=== PATIENT | female | born 2000 | race Two or more races ===

== ENCOUNTER 2022-11-28 12:19 | Inpatient (IN) | payer OTHER, MEDICAID, SELFPAY ==
[2022-11-28 12:34] VITALS: BP 122/80; PULSE 106; RESP 18; O2SAT 98; BMI 32.1
--- NOTE | 2022-11-28 13:03 | ED.PSYCH ---
HPI - Psych General Chief Complaint: Psychiatric Symptoms <Kavitha Nguyen NP - Last Filed: 11/28/22 16:12> Stated Complaint: Psych eval requested by patient per EMS <Kavitha Nguyen NP - Last Filed: 11/28/22 16:12> Time Seen by Provider: 11/28/22 12:34 <Kavitha Nguyen NP - Last Filed: 11/28/22 16:12> Source: patient and EMS <Kavitha Nguyen NP - Last Filed: 11/28/22 16:12> Mode of arrival: EMS <Kavitha Nguyen NP - Last Filed: 11/28/22 16:12> Limitations: no limitations <Kavitha Nguyen NP - Last Filed: 11/28/22 16:12> History of Present Illness HPI Narrative: 22-year-old female who reportedly is healthy presents to the ER seeking a mental health evaluation. Patient reports she was very angry today at home and was throwing things and felt that she was quite aggressive so feels that she needs a mental health evaluation. She denies SI, HI, hallucinations, substance use. No physical complaints <Kavitha Nguyen NP - Last Filed: 11/28/22 16:12> Related Data Home Medications: Home Medications Medication Instructions Recorded Confirmed benztropine 1 mg PO DAILY 11/28/22 11/28/22 perphenazine 8 mg PO BID 11/28/22 11/28/22 risperidone 1 mg PO BID 11/28/22 11/28/22 trazodone 50 mg PO BEDTIME 11/28/22 11/28/22 <Kavitha Nguyen NP - Last Filed: 11/28/22 16:12> Allergies/Adverse Reactions: Allergies Allergy/AdvReac Type Severity Reaction Status Date / Time No Known Allergies Allergy Verified 11/28/22 13:52 <Kavitha Nguyen NP - Last Filed: 11/28/22 16:12> Review of Systems Review of Systems: Yes all other systems are reviewed and are negative <TORRIE Mendez Last Filed: 11/28/22 16:12> Constitutional: Constitutional: Reports no additional constitutional complaints, Denies body ache(s), Denies chills, Denies fever(s), Denies headache(s) and Denies weakness <Kavitha Nguyen [employer] - Last Filed: 11/28/22 16:12> Eyes: Eyes: Reports no additional eye complaints and Denies change in vision <Kavitha Nguyen [employer] - Last Filed: 11/28/22 16:12> ENT: Reports system reviewed and no additional complaints, except as documented, Denies dizziness, Denies headache(s), Denies nasal congestion, Denies nasal discharge and Denies neck pain <Kavitha Nguyen [employer] - Last Filed: 11/28/22 16:12> Cardiovascular: Cardiovascular: Reports no additional cardiovascular complaints, Denies chest pain, Denies leg edema and Denies dyspnea <Kavitha Nguyen [employer] - Last Filed: 11/28/22 16:12> Respiratory: Respiratory: Reports no additional respiratory complaints, Denies cough and Denies dyspnea <Kavitha Nguyen [employer] - Last Filed: 11/28/22 16:12> Gastrointestinal: Gastrointestinal: Reports no additional gastrointestinal complaints, Denies abdominal pain, Denies diarrhea, Denies nausea and Denies vomiting <Kavitha Nguyen [employer] - Last Filed: 11/28/22 16:12> Genitourinary: Genitourinary: Reports no additional female genitourinary complaints and Denies urinary incontinence <Kavitha Nguyen [employer] - Last Filed: 11/28/22 16:12> Musculoskeletal: Musculoskeletal: Reports no additional musculoskeletal complaints, Denies back pain, Denies arthralgias, Denies joint swelling, Denies neck pain, Denies numbness and Denies tingling <Kavitha Nguyen [employer] - Last Filed: 11/28/22 16:12> Integumentary/Breasts: Skin/Breast: Reports system reviewed and no additional complaints, except as docu and Denies rash <Kavitha Nguyen [employer] - Last Filed: 11/28/22 16:12> Neurologic: Reports system reviewed and no additional complaints, except as documented, Denies Abnormal speech present, Reports behavioral changes, Denies confusion, Denies dizziness, Denies headache(s), Denies numbness, Denies tingling and Denies weakness <Kavitha Nguyen NP - Last Filed: 11/28/22 16:12> Psychiatric: Psychiatric: Denies anxiety, Reports behavioral changes, Denies confusion, Denies depression, Denies homicidal ideation and Denies suicidal ideation <Kavitha Nguyen NP - Last Filed: 11/28/22 16:12> PMFSH Past Medical History Attestation statement: The following information was validated with the patient. <Kavitha Nguyen NP - Last Filed: 11/28/22 16:12> Source: old records reviewed and nursing notes reviewed <Kavitha Nguyen NP - Last Filed: 11/28/22 16:12> Social History Social History: Social History Alcohol intake: never Smoked in Last 30 Days: No Use of substances other than those prescribed or required for medical reasons: No Any prior treatment program specific to substance use: No Advance Directives: No Patient : No <Kavitha Nguyen NP - Last Filed: 11/28/22 16:12> Physical Exam Vital Signs: Vital Signs: Last Vital Signs Temp 97.2 F 11/29/22 10:46 Pulse 94 11/29/22 10:46 Resp 16 11/29/22 10:46 BP 113/74 11/29/22 10:46 Pulse Ox 99 11/29/22 10:46 O2 Del Method Room Air 11/29/22 10:46 BMI result Body Mass Index 32.1 <Kavitha Nguyen NP - Last Filed: 11/28/22 16:12> Vital Signs: Last Vital Signs Temp 97.2 F 11/29/22 10:46 Pulse 94 11/29/22 10:46 Resp 16 11/29/22 10:46 BP 113/74 11/29/22 10:46 Pulse Ox 99 11/29/22 10:46 O2 Del Method Room Air 11/29/22 10:46 BMI result Body Mass Index 32.1 <Tru Conti MD - Last Filed: 11/29/22 13:37> Const: General: No confusion <Kavitha Nguyen NP - Last Filed: 11/28/22 16:12> Orientation/consciousness: No confusion <Kavitha Nguyen, [employer] - Last Filed: 11/28/22 16:12> Limitations: no limitations <Kavitha Nguyen [employer] LE[employer]ER - Last Filed: 11/28/22 16:12> HEENT: Head: Yes normal to inspection <Kavihta Nguyen [employer] LE[employer]ER - Last Filed: 11/28/22 16:12> Ears: hearing grossly normal bilaterally <Kavitha Nguyen [employer] LE[employer]ER - Last Filed: 11/28/22 16:12> General nose exam: Normal external nose present <Kavitha Nguyen [employer] LE[employer]ER - Last Filed: 11/28/22 16:12> Face and sinus: Yes normal facial exam <Kavitha Nguyen [employer] LEADER - Last Filed: 11/28/22 16:12> Mouth: Normal oral and palatal mucosa present <Kavitha Nguyen [employer] LEADER - Last Filed: 11/28/22 16:12> Throat: Yes posterior oropharynx normal <Kavitha Nguyen, [employer] LEADER - Last Filed: 11/28/22 16:12> Eyes: General: appearance normal, both eyes and all related structures <Kavitha Nguyen [employer] LEADER - Last Filed: 11/28/22 16:12> Pupils: Equal, round and reactive pupils present <Kavitha Nguyen [employer] LEADER - Last Filed: 11/28/22 16:12> Neck: Neck: Yes normal visual inspection <Kavitha Nguyen [employer] LEADER - Last Filed: 11/28/22 16:12> Chest: Chest palpation & inspection: normal inspection of the chest <Kavitha Nguyen [employer] LEADER - Last Filed: 11/28/22 16:12> Resp: Effort & Inspection: normal respiratory effort <Kavitha Nguyen [employer] LEADER - Last Filed: 11/28/22 16:12> Auscultation: clear to auscultation bilaterally <Kavitha Nguyen [employer] LEADER - Last Filed: 11/28/22 16:12> Cardio: Rate: regular rate <Kavitha Nguyen [employer] LEADER - Last Filed: 11/28/22 16:12> Rhythm: regular rhythm <Kavitha Nguyen [employer] LEADER - Last Filed: 11/28/22 16:12> Peripheral pulses: Peripheral pulses 2+ throughout <Kavitha Nguyen [employer] LEADER - Last Filed: 11/28/22 16:12> GI: Inspection: Yes normal to inspection <Kavitha Nguyen [employer] LEADER - Last Filed: 11/28/22 16:12> Palpation (GI): Soft to palpation and nontender <Kavitha Nguyen [employer] LEADER - Last Filed: 11/28/22 16:12> Auscultation: normal bowel sounds <Kavitha Patrick, [employer] LEADER - Last Filed: 11/28/22 16:12> Back/Spine/Pelvis: Thoracic/Lumbar Spine: thoracic and lumbar spine normal to inspection <Kavithanicolasa Nguyen, [employer] LEADER - Last Filed: 11/28/22 16:12> Skin: General skin exam: no rashes or lesions noted <Kavitha Nguyen [employer] LEADER - Last Filed: 11/28/22 16:12> Neuro: General: No confusion <Kavithanicolasa Nguyen, [employer]DO[employer]URE LEADER - Last Filed: 11/28/22 16:12> Cranial nerves: Yes Equal, round and reactive pupils present <Kavitha Patrick, [employer] LEADER - Last Filed: 11/28/22 16:12> Cognition (Neuro): normal cognition <Kavitha Nguyen [employer] LEADER - Last Filed: 11/28/22 16:12> Speech: No Abnormal speech present <Kavitha Nguyen [employer] AD[employer]URE LEADER - Last Filed: 11/28/22 16:12> Gait exam (Neuro): Normal gait present <Kavitha Nguyen, [employer] LEADER - Last Filed: 11/28/22 16:12> Motor exam (neuro): 5/5 motor strength present throughout <Kavitha Patrick, [employer] LEADER - Last Filed: 11/28/22 16:12> Extrem: General: Yes normal to inspection <Kavitha Nguyen, [employer] LEADER - Last Filed: 11/28/22 16:12> Course Reevaluation(s) Reevaluation #1: 22 yo [id number] withy aggresive behavior. Tox screen negative. Reportedly not taking medications. Awaiting Care/Crisis team evaluation <Tru Conti MD - Last Filed: 11/29/22 13:37> Time: 08:55 <Tru Conti MD - Last Filed: 11/29/22 13:37> Reevaluation #2: Patient appears to have urinary tract infection. Will start Keflex 500 mg twice daily. Recommend 3-7 days of treatment. <Tru Conti MD - Last Filed: 11/29/22 13:37> Time: 13:36 <Tru Conti MD - Last Filed: 11/29/22 13:37> Medications Administered Discontinued Medications Generic Name Dose Route Start Last Admin Trade Name Freq PRN Reason Stop Dose Admin Cephalexin HCl 500 mg 11/29/22 08:55 11/29/22 09:41 Cephalexin 500 Mg Capsule PO 11/29/22 08:56 Not Given ONCE ONE Cephalexin HCl 500 mg 11/29/22 09:57 11/29/22 11:25 Cephalexin 500 Mg Capsule PO 11/29/22 09:58 Not Given ONCE ONE <Kavitha Nguyen NP - Last Filed: 11/28/22 16:12> Medications Administered Discontinued Medications Generic Name Dose Route Start Last Admin Trade Name Freq PRN Reason Stop Dose Admin Cephalexin HCl 500 mg 11/29/22 08:55 11/29/22 09:41 Cephalexin 500 Mg Capsule PO 11/29/22 08:56 Not Given ONCE ONE Cephalexin HCl 500 mg 11/29/22 09:57 11/29/22 11:25 Cephalexin 500 Mg Capsule PO 11/29/22 09:58 Not Given ONCE ONE <Tru Conti MD - Last Filed: 11/29/22 13:37> Medical Decision Making Medical Decision Making [facility] Narrative: 22-year-old female here seeking mental health evaluation No SI or HI No concern for acute ingestion or trauma no physical Will obtain labs, drug screen, crisis consult <Kavitha Nguyen NP - Last Filed: 11/28/22 16:12> Differential Diagnosis Differential Diagnoses: The differential diagnosis associated with the presentation includes <TORRIE Mendez Last Filed: 11/28/22 16:12> Lab Data [facility] Lab Attestation statement: I reviewed the patient's lab results. <Kavitha Nguyen NP - Last Filed: 11/28/22 16:12> Result Diagrams: 11/28/22 13:30 11/28/22 13:30 <Kavitha Nguyen NP - Last Filed: 11/28/22 16:12> Labs: Lab Results 11/28/22 11/28/22 11/28/22 Range/Units 13:12 13:12 13:12 WBC (4.8-10.8) X10*3/uL RBC (4.20-5.50) X10*6/uL Hgb (12.0-16.0) g/dl Hct (37.0-47.0) % MCV (80.0-98.0) fL MCH (27.0-33.0) pg MCHC (31.0-35.0) g/dl RDW (11.0-16.0) % Plt Count (160-400) X10*3/uL MPV (9.4-12.3) fL Immature Gran % (Auto) (0.0-0.4) % Neut % (Auto) (45-73) % Lymph % (Auto) (20-40) % [place] % (Auto) (2-11) % Eos % (Auto) (0-4) % Baso % (Auto) (0-2) % Lymph # (Auto) (1.2-4.9) X10*3/uL [place] # (Auto) (0.1-1.2) X10*3/uL Eos # (Auto) (0.0-0.4) X10*3/uL Baso # (Auto) (0.0-0.2) X10*3/uL Abs Immat Gran (auto) (0.00-0.03) X10*3/uL Absolute Neuts (auto) (2.0-8.3) x10*3/uL Absolute Nucleated RBC (0.0-0.012) X10*3/uL Nucleated RBC % (auto) (0.0-0.2) /100WBC Sodium (135-145) mmol/L Potassium (3.3-5.1) mmol/L Chloride (96-108) mmol/L Carbon Dioxide (22-29) mmol/L Anion Gap (12-20) BUN (9-16) mg/dL Creatinine (0.5-1.4) mg/dL Estim Creat Clear Calc Estimated GFR Random Glucose (60-115) mg/dL Calcium (8.4-10.2) mg/dL Total Bilirubin (0.0-1.0) mg/dL AST (5-31) U/L ALT (0-31) U/L Alkaline Phosphatase (39-117) U/L Total Protein (6.5-8.0) g/dL Albumin (3.5-5.0) g/dL Urine Color Yellow Urine Appearance Turbid Urine pH 6.0 (5.0-9.0) Ur Specific [place] 1.025 (1.005-1.025) Urine Protein Trace (Neg-Trace) mg/dL Urine Glucose (UA) Negative (Negative) mg/dL Urine Ketones 15 (Negative) mg/dL Urine Blood Trace H (Negative) Urine Nitrite Negative (Negative) Ur Leukocyte Esterase Moderate (2+) H (Negative) Urine RBC 3-5 H (0-2) /HPF Urine WBC 11-20 H (0-5) /HPF Ur Squamous Epith Cells 11-20 (0-2) /HPF Urine Bacteria 1+ (None Seen) Hyaline Casts 0-2 (0-2) /LPF Urine Test NEGATIVE (NEGATIVE) Urine Opiates Screen Not Detected (Not Detect) Urine Fentanyl Screen Not Detected (Not Detect) Ur Barbiturates Screen Not Detected (Not Detect) Ur Phencyclidine Scrn Not Detected (Not Detect) Ur Amphetamines Screen Not Detected (Not Detect) U Benzodiazepines Scrn Not Detected (Not Detect) Urine Cocaine Screen Not Detected (Not Detect) U Marijuana (THC) Screen Not Detected (Not Detect) Ethyl Alcohol mg/dL COVID-19 (ARETHA) (Negative) COVID-19 Clin Com 11/28/22 11/28/22 11/28/22 Range/Units 13:30 13:30 13:30 WBC 8.5 (4.8-10.8) X10*3/uL RBC 4.82 (4.20-5.50) X10*6/uL Hgb 12.9 (12.0-16.0) g/dl Hct 39.0 (37.0-47.0) % MCV 80.9 (80.0-98.0) fL MCH 26.8 L (27.0-33.0) pg MCHC 33.1 (31.0-35.0) g/dl RDW 14.5 (11.0-16.0) % Plt Count 337 (160-400) X10*3/uL MPV 10.7 (9.4-12.3) fL Immature Gran % (Auto) 0.4 (0.0-0.4) % Neut % (Auto) 59.8 (45-73) % Lymph % (Auto) 33.8 (20-40) % [place] % (Auto) 5.8 (2-11) % Eos % (Auto) 0.1 (0-4) % Baso % (Auto) 0.1 (0-2) % Lymph # (Auto) 2.9 (1.2-4.9) X10*3/uL [place] # (Auto) 0.5 (0.1-1.2) X10*3/uL Eos # (Auto) 0.0 (0.0-0.4) X10*3/uL Baso # (Auto) 0.0 (0.0-0.2) X10*3/uL Abs Immat Gran (auto) 0.03 (0.00-0.03) X10*3/uL Absolute Neuts (auto) 5.1 (2.0-8.3) x10*3/uL Absolute Nucleated RBC 0.000 (0.0-0.012) X10*3/uL Nucleated RBC % (auto) 0.0 (0.0-0.2) /100WBC Sodium 142 (135-145) mmol/L Potassium 3.7 (3.3-5.1) mmol/L Chloride 109 H (96-108) mmol/L Carbon Dioxide 26 (22-29) mmol/L Anion Gap 11 L (12-20) BUN 10 (9-16) mg/dL Creatinine 0.87 (0.5-1.4) mg/dL Estim Creat Clear Calc 95.3 Estimated GFR > 60 Random Glucose 84 (60-115) mg/dL Calcium 9.3 (8.4-10.2) mg/dL Total Bilirubin 0.6 (0.0-1.0) mg/dL AST 18 (5-31) U/L ALT 18 (0-31) U/L Alkaline Phosphatase 106 (39-117) U/L Total Protein 6.5 (6.5-8.0) g/dL Albumin 4.0 (3.5-5.0) g/dL Urine Color Urine Appearance Urine pH (5.0-9.0) Ur Specific [place] (1.005-1.025) Urine Protein (Neg-Trace) mg/dL Urine Glucose (UA) (Negative) mg/dL Urine Ketones (Negative) mg/dL Urine Blood (Negative) Urine Nitrite (Negative) Ur Leukocyte Esterase (Negative) Urine RBC (0-2) /HPF Urine WBC (0-5) /HPF Ur Squamous Epith Cells (0-2) /HPF Urine Bacteria (None Seen) Hyaline Casts (0-2) /LPF Urine Test (NEGATIVE) Urine Opiates Screen (Not Detect) Urine Fentanyl Screen (Not Detect) Ur Barbiturates Screen (Not Detect) Ur Phencyclidine Scrn (Not Detect) Ur Amphetamines Screen (Not Detect) U Benzodiazepines Scrn (Not Detect) Urine Cocaine Screen (Not Detect) U Marijuana (THC) Screen (Not Detect) Ethyl Alcohol < 10 mg/dL COVID-19 (ARETHA) Negative (Negative) COVID-19 Clin Com See Note <Kavitha Nguyen NP - Last Filed: 11/28/22 16:12> Lab Results 11/28/22 11/28/22 11/28/22 Range/Units 13:12 13:12 13:12 WBC (4.8-10.8) X10*3/uL RBC (4.20-5.50) X10*6/uL Hgb (12.0-16.0) g/dl Hct (37.0-47.0) % MCV (80.0-98.0) fL MCH (27.0-33.0) pg MCHC (31.0-35.0) g/dl RDW (11.0-16.0) % Plt Count (160-400) X10*3/uL MPV (9.4-12.3) fL Immature Gran % (Auto) (0.0-0.4) % Neut % (Auto) (45-73) % Lymph % (Auto) (20-40) % [place] % (Auto) (2-11) % Eos % (Auto) (0-4) % Baso % (Auto) (0-2) % Lymph # (Auto) (1.2-4.9) X10*3/uL [place] # (Auto) (0.1-1.2) X10*3/uL Eos # (Auto) (0.0-0.4) X10*3/uL Baso # (Auto) (0.0-0.2) X10*3/uL Abs Immat Gran (auto) (0.00-0.03) X10*3/uL Absolute Neuts (auto) (2.0-8.3) x10*3/uL Absolute Nucleated RBC (0.0-0.012) X10*3/uL Nucleated RBC % (auto) (0.0-0.2) /100WBC Sodium (135-145) mmol/L Potassium (3.3-5.1) mmol/L Chloride (96-108) mmol/L Carbon Dioxide (22-29) mmol/L Anion Gap (12-20) BUN (9-16) mg/dL Creatinine (0.5-1.4) mg/dL Estim Creat Clear Calc Estimated GFR Random Glucose (60-115) mg/dL Calcium (8.4-10.2) mg/dL Total Bilirubin (0.0-1.0) mg/dL AST (5-31) U/L ALT (0-31) U/L Alkaline Phosphatase (39-117) U/L Total Protein (6.5-8.0) g/dL Albumin (3.5-5.0) g/dL Urine Color Yellow Urine Appearance Turbid Urine pH 6.0 (5.0-9.0) Ur Specific [place] 1.025 (1.005-1.025) Urine Protein Trace (Neg-Trace) mg/dL Urine Glucose (UA) Negative (Negative) mg/dL Urine Ketones 15 (Negative) mg/dL Urine Blood Trace H (Negative) Urine Nitrite Negative (Negative) Ur Leukocyte Esterase Moderate (2+) H (Negative) Urine RBC 3-5 H (0-2) /HPF Urine WBC 11-20 H (0-5) /HPF Ur Squamous Epith Cells 11-20 (0-2) /HPF Urine Bacteria 1+ (None Seen) Hyaline Casts 0-2 (0-2) /LPF Urine Test NEGATIVE (NEGATIVE) Urine Opiates Screen Not Detected (Not Detect) Urine Fentanyl Screen Not Detected (Not Detect) Ur Barbiturates Screen Not Detected (Not Detect) Ur Phencyclidine Scrn Not Detected (Not Detect) Ur Amphetamines Screen Not Detected (Not Detect) U Benzodiazepines Scrn Not Detected (Not Detect) Urine Cocaine Screen Not Detected (Not Detect) U Marijuana (THC) Screen Not Detected (Not Detect) Ethyl Alcohol mg/dL COVID-19 (ARETHA) (Negative) COVID-19 Clin Com 11/28/22 11/28/22 11/28/22 Range/Units 13:30 13:30 13:30 WBC 8.5 (4.8-10.8) X10*3/uL RBC 4.82 (4.20-5.50) X10*6/uL Hgb 12.9 (12.0-16.0) g/dl Hct 39.0 (37.0-47.0) % MCV 80.9 (80.0-98.0) fL MCH 26.8 L (27.0-33.0) pg MCHC 33.1 (31.0-35.0) g/dl RDW 14.5 (11.0-16.0) % Plt Count 337 (160-400) X10*3/uL MPV 10.7 (9.4-12.3) fL Immature Gran % (Auto) 0.4 (0.0-0.4) % Neut % (Auto) 59.8 (45-73) % Lymph % (Auto) 33.8 (20-40) % [place] % (Auto) 5.8 (2-11) % Eos % (Auto) 0.1 (0-4) % Baso % (Auto) 0.1 (0-2) % Lymph # (Auto) 2.9 (1.2-4.9) X10*3/uL [place] # (Auto) 0.5 (0.1-1.2) X10*3/uL Eos # (Auto) 0.0 (0.0-0.4) X10*3/uL Baso # (Auto) 0.0 (0.0-0.2) X10*3/uL Abs Immat Gran (auto) 0.03 (0.00-0.03) X10*3/uL Absolute Neuts (auto) 5.1 (2.0-8.3) x10*3/uL Absolute Nucleated RBC 0.000 (0.0-0.012) X10*3/uL Nucleated RBC % (auto) 0.0 (0.0-0.2) /100WBC Sodium 142 (135-145) mmol/L Potassium 3.7 (3.3-5.1) mmol/L Chloride 109 H (96-108) mmol/L Carbon Dioxide 26 (22-29) mmol/L Anion Gap 11 L (12-20) BUN 10 (9-16) mg/dL Creatinine 0.87 (0.5-1.4) mg/dL Estim Creat Clear Calc 95.3 Estimated GFR > 60 Random Glucose 84 (60-115) mg/dL Calcium 9.3 (8.4-10.2) mg/dL Total Bilirubin 0.6 (0.0-1.0) mg/dL AST 18 (5-31) U/L ALT 18 (0-31) U/L Alkaline Phosphatase 106 (39-117) U/L Total Protein 6.5 (6.5-8.0) g/dL Albumin 4.0 (3.5-5.0) g/dL Urine Color Urine Appearance Urine pH (5.0-9.0) Ur Specific [place] (1.005-1.025) Urine Protein (Neg-Trace) mg/dL Urine Glucose (UA) (Negative) mg/dL Urine Ketones (Negative) mg/dL Urine Blood (Negative) Urine Nitrite (Negative) Ur Leukocyte Esterase (Negative) Urine RBC (0-2) /HPF Urine WBC (0-5) /HPF Ur Squamous Epith Cells (0-2) /HPF Urine Bacteria (None Seen) Hyaline Casts (0-2) /LPF Urine Test (NEGATIVE) Urine Opiates Screen (Not Detect) Urine Fentanyl Screen (Not Detect) Ur Barbiturates Screen (Not Detect) Ur Phencyclidine Scrn (Not Detect) Ur Amphetamines Screen (Not Detect) U Benzodiazepines Scrn (Not Detect) Urine Cocaine Screen (Not Detect) U Marijuana (THC) Screen (Not Detect) Ethyl Alcohol < 10 mg/dL COVID-19 (ARETHA) Negative (Negative) COVID-19 Clin Com See Note <Tru Conti MD - Last Filed: 11/29/22 13:37> Discharge Plan Discharge Clinical Impression: Altered behavior, Acute UTI <Kavitha Nguyen NP - Last Filed: 11/28/22 16:12> Patient Disposition: Still a Patient <Kavitha Nguyen NP - Last Filed: 11/28/22 16:12> Prescriptions: No Action benztropine 1 mg PO DAILY perphenazine 8 mg PO BID risperidone 1 mg PO BID trazodone 50 mg PO BEDTIME <Kavitha Nguyen NP - Last Filed: 11/28/22 16:12> Interventions: Randle-Suicide Risk Severity Scale Last Done: 11/29/22 06:17 <Kavitha Nguyen NP - Last Filed: 11/28/22 16:12>
--- NOTE | 2022-11-28 13:16 | MHC.CARE ---
Anum Gibson from [facility] aware of patient/ family dynamics and expresses concern- patient was admitted to [facility] inpatient recently. Her father is very concerned, patient not medication compliant. Father speaks croatian only, does well with an hand reamer. Feel free to contact her with any and all concerns.
[2022-11-28 13:24] LABS: UPreg QC Valid YES; Urine Pregnancy NEGATIVE (NEGATIVE)
[2022-11-28 13:28] LABS: Amphetamine Screen Urine Not Detected (Not Detect); Barbiturates, Urine Not Detected (Not Detect); Benzodiazepines Screen Urine Not Detected (Not Detect); Cannabinoid Screen Urine Not Detected (Not Detect); Cocaine Screen Urine Not Detected (Not Detect); Fentanyl, urine Not Detected (Not Detect); Opiate Screen Urine Not Detected (Not Detect); Phencyclidine Screen Urine Not Detected (Not Detect)
[2022-11-28 13:34] LABS: MANUAL DIFF FLAG NO
[2022-11-28 13:37] LABS: Basophils Percent Auto 0.1 % (0-2); Eosinophils Percent Auto 0.1 % (0-4); Hemoglobin 12.9 g/dl (12.0-16.0); Imm Gran Abs Auto 0.03 X10*3/uL (0.00-0.03); Imm Gran Pct Auto 0.4 % (0.0-0.4); Lymphocytes Absolute Auto 2.9 X10*3/uL (1.2-4.9); Lymphocytes Percent Auto 33.8 % (20-40); Mean Corpuscular HGB Conc 33.1 g/dl (31.0-35.0); Mean Corpuscular Hemoglobin 26.8 pg (27.0-33.0); Mean Corpuscular Volume 80.9 fL (80.0-98.0); Mean Platelet Volume 10.7 fL (9.4-12.3); Monocytes Absolute Auto 0.5 X10*3/uL (0.1-1.2); Monocytes Percent Auto 5.8 % (2-11); Neutrophils Absolute Auto 5.1 x10*3/uL (2.0-8.3); Neutrophils Percent Auto 59.8 % (45-73); Platelet Count 337 X10*3/uL (160-400); Red Blood Count 4.82 X10*6/uL (4.20-5.50); Red Cell Distribution Width 14.5 % (11.0-16.0); White Blood Count 8.5 X10*3/uL (4.8-10.8)
[2022-11-28 13:52] LABS: COVID-19 Test Negative (Negative); IDNOW Serial# 9DB6401D
[2022-11-28 14:00] LABS: Alanine Aminotransferase 18 U/L (0-31); Alkaline Phosphatase 106 U/L (39-117); Anion Gap 11 (12-20); Aspartate Amino Transferase 18 U/L (5-31); Bilirubin Total 0.6 mg/dL (0.0-1.0); Blood Urea Nitrogen 10 mg/dL (9-16); Calcium 9.3 mg/dL (8.4-10.2); Carbon Dioxide 26 mmol/L (22-29); Chloride 109 mmol/L (96-108); Creatinine Clr Calc Pharmacy 95.3; Estimated Glomerular Filt Rate > 60; Ethanol < 10 mg/dL; Glucose Random 84 mg/dL (60-115); Potassium 3.7 mmol/L (3.3-5.1); Sodium 142 mmol/L (135-145); Total Protein 6.5 g/dL (6.5-8.0)
--- NOTE | 2022-11-28 19:11 | MHC.CARE ---
Pt is an inpatient bedsearch from [facility] Team
[2022-11-28 21:39] VITALS: BP 140/71; PULSE 102; RESP 18; TEMP 36.9; O2SAT 97
[2022-11-28 21:42] LABS: Appearance Urine Turbid; Color Urine Yellow; Glucose Urine UA Negative (Negative); Leukocyte Esterase Urine Moderate (2+) (Negative); Nitrite Urine Negative (Negative); Specific Gravity - Urine 1.025 (1.005-1.025); UMIC TRIGGER UA YES; Urine Blood Trace (Negative); Urine Ketones 15 mg/dL (Negative); Urine Protein Trace mg/dL (Neg-Trace)
[2022-11-28 21:44] LABS: Bacteria Urine 1+ (None Seen); Hyaline Casts Urine 0-2 /LPF (0-2)
[2022-11-29 06:19] VITALS: BP 114/70; PULSE 75; RESP 17; TEMP 36.3; O2SAT 99
--- NOTE | 2022-11-29 06:20 | PC.NURSE ---
Patient slept through the night, no distress observed/reported, behavior non concerning, med rec completed/pending provider's approval, labs completed/resulted, disposition per care team is section 12 inpatient bed search, VSS, will continue to monitor
--- NOTE | 2022-11-29 10:10 | MHC.CARE ---
T/w spoke with patient's father, Gera via human service specialist service. Informed him that patient has been accepted to . Patient's father is at work until 2p and will reach out later today to [facility].
[2022-11-29 10:46] VITALS: BP 113/74; PULSE 94; RESP 16; TEMP 36.2; O2SAT 99
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
[2022-11-29 14:55] VITALS: BP 116/67; PULSE 66; RESP 18; TEMP 36.6; O2SAT 98
[2022-11-29 16:12] VITALS: BMI 32.2
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
[2022-11-30] MEDS: cephALEXin 500 MG CAPSULE PO ×2 (08:57→21:26)
[2022-11-30 09:05] VITALS: BP 101/63; PULSE 68; RESP 18; TEMP 36.3; O2SAT 98
[2022-11-30 09:18] LABS: Estimated Average Glucose 97 mg/dL
[2022-11-30 09:21] LABS: Cholesterol 159 mg/dL; HDL Cholesterol 39 mg/dL; LDL Cholesterol Calculated 105 mg/dl; Triglycerides 79 mg/dL
--- NOTE | 2022-11-30 09:55 | PC.NURSE ---
Patient declined cogentin and risperdal but accepted cephalexin. Reported in team.
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
[2022-11-30 21:30] VITALS: BP 113/69; PULSE 89; TEMP 36.4; O2SAT 93
[2022-12-01 11:56] VITALS: BP 130/64; PULSE 79; RESP 16; TEMP 36.1; O2SAT 98
[2022-12-01] MEDS: cephALEXin 500 MG CAPSULE PO ×2 (11:59→20:27)
[2022-12-01 18:00] VITALS: BP 130/60; PULSE 96; TEMP 36.6; O2SAT 96
--- NOTE | 2022-12-01 20:45 | HO.PSYCHPN ---
Subjective Subjective Date of Service: 12/01/22 Reason For Visit: psychosis Medical Problems Affecting Mental Status: No Interim History: 3 day notice expires 12/04. Refusing meds. Guarded. Reports feeling fine and no concerns. Limited participation in interview. Wants discharge but no clear plan. Review of Systems Review of Systems Yes Unobtainable due to mental status Mental Status Exam Mental Status Exam Narrative: dressed in hospital attire, disheveled with questionable grooming. cooperative. no PMA/PMR. speech nml rate, amount, loudness, tone, latency. thoughts poverty and illogical. affect mildly flexible, normo-intense, non-labile. mood OK. denies SI/SIBI/HI/AVH. Guarded Diagnostics Vital Signs (24Hr): Vital Signs - 24 hr 11/30/22 21:30 12/01/22 11:56 12/01/22 18:00 Temperature 97.6 F 97.0 F 97.8 F Pulse Rate 89 79 96 Respiratory Rate 16 Blood Pressure 113/69 130/64 130/60 Pulse Oximetry 93 98 96 Oxygen Delivery Method Room Air Room Air Room Air BMI result Body Mass Index 32.2 Labs 11/28/22 13:30 11/28/22 13:30 Labs: Laboratory Results - last 48 hr 11/30/22 11/30/22 08:48 08:48 Estimat Average Glucose 97 Hemoglobin A1c % 5.0 Triglycerides 79 Cholesterol 159 LDL Cholesterol, Calc 105 HDL Cholesterol 39 Medications Medications Current Medications Acetaminophen (Acetaminophen 325 Mg Tablet) 650 mg PO Q6H PRN PRN Reason: Headache/Pain Mild Scale (1-3) Al Hydroxide/Mg Hydroxide (Magnesium Hydrox/Alum Hydrox 30 Ml Oral.Susp) 30 ml PO Q6H PRN PRN Reason: Heartburn/Nausea Benztropine Mesylate (Benztropine Mesylate 1 Mg Tablet) 1 mg PO DAILY [facility] Last Admin: 12/01/22 09:53 Dose: Not Given Cephalexin HCl (Cephalexin 500 Mg Capsule) 500 mg PO BID [facility] Stop: 12/04/22 20:59 Last Admin: 12/01/22 20:27 Dose: 500 mg Hydroxyzine HCl (Hydroxyzine Hcl 25 Mg Tablet) 25 mg PO Q6H PRN PRN Reason: Anxiety [place] Carbonate (Bend Carbonate Er 450 Mg Tablet.Er) 900 mg PO BEDTIME [facility] Last Admin: 12/01/22 20:27 Dose: Not Given Magnesium Hydroxide (Milk Of Magnesia 30 Ml Oral.Susp) 30 ml PO DAILY PRN PRN Reason: Constipation Nicotine (Nicotine 21 Mg Patch.Td24) 21 mg TRANSDERMA DAILY PRN PRN Reason: smoking cessation Nicotine Polacrilex (Nicotine Polacrilex 2 Mg Gum) 4 mg BUCCAL Q2H PRN PRN Reason: Nicotine Cravings Olanzapine (Olanzapine 5 Mg Tablet) 5 mg PO TID PRN PRN Reason: agitation Risperidone (Risperidone 1 Mg Tablet) 1 mg PO BID [facility] Last Admin: 12/01/22 20:28 Dose: Not Given Trazodone HCl (Trazodone Hcl 50 Mg Tablet) 50 mg PO BEDTIME [facility] Last Admin: 12/01/22 20:28 Dose: Not Given Allergies Allergies Allergy/AdvReac Type Severity Reaction Status Date / Time No Known Allergies Allergy Verified 11/28/22 13:52 Assessment & Plan Assessment & Plan (1) Schizoaffective disorder, bipolar type: Status: Acute Code(s): F25.0 - Schizoaffective disorder, bipolar type Plan offer lithium. milieu therapy, groups. practice coping skills: showering, music, writing poetry or music, drinking tea, painting. dispo planning. Reason for continued inpatient stay Substantial Risk for: inability to function Time Spent With Patient Time: Total time managing care of this patient today ____ minutes.
[2022-12-02 06:00] VITALS: BP 118/62; PULSE 90; RESP 16; TEMP 36.3; O2SAT 96
--- NOTE | 2022-12-02 14:10 | HO.PSYCHPN ---
Subjective Subjective Date of Service: 12/02/22 Reason For Visit: psychosis Interim History: Continues to decline meds but wants discharge. Reports feeling fine and no concerns. Limited participation in interview. Wants discharge but no clear plan. Focus today was concern her tablet would be available on discharge ie still in her property from when she was admitted. 3 day notice expires 12/04. Medication Compliance: No Side effects from medications: No Attending Groups: Intermittent Review of Systems Acute medical concerns: No Review of Systems Review of Systems unremarkable Mental Status Exam Mental Status Exam Narrative: dressed in hospital attire, disheveled with questionable grooming. cooperative. no PMA/PMR. speech nml rate, amount, loudness, tone, latency. thoughts povert. affect mildly flexible, normo-intense, non-labile. mood OK. denies SI/SIBI/HI/AVH. Guarded Diagnostics Vital Signs (24Hr): Vital Signs - 24 hr 12/01/22 18:00 12/02/22 06:00 Temperature 97.8 F 97.4 F Pulse Rate 96 90 Respiratory Rate 16 Blood Pressure 130/60 118/62 Pulse Oximetry 96 96 Oxygen Delivery Method Room Air Room Air BMI result Body Mass Index 32.2 Labs 11/28/22 13:30 11/28/22 13:30 Medications Medications Current Medications Acetaminophen (Acetaminophen 325 Mg Tablet) 650 mg PO Q6H PRN PRN Reason: Headache/Pain Mild Scale (1-3) Al Hydroxide/Mg Hydroxide (Magnesium Hydrox/Alum Hydrox 30 Ml Oral.Susp) 30 ml PO Q6H PRN PRN Reason: Heartburn/Nausea Benztropine Mesylate (Benztropine Mesylate 1 Mg Tablet) 1 mg PO DAILY [facility] Last Admin: 12/02/22 10:31 Dose: Not Given Cephalexin HCl (Cephalexin 500 Mg Capsule) 500 mg PO BID [facility] Stop: 12/04/22 20:59 Last Admin: 12/02/22 10:55 Dose: Not Given Hydroxyzine HCl (Hydroxyzine Hcl 25 Mg Tablet) 25 mg PO Q6H PRN PRN Reason: Anxiety [place] Carbonate ([place] Carbonate Er 450 Mg Tablet.Er) 900 mg PO BEDTIME [facility] Last Admin: 12/01/22 20:27 Dose: Not Given Magnesium Hydroxide (Milk Of Magnesia 30 Ml Oral.Susp) 30 ml PO DAILY PRN PRN Reason: Constipation Nicotine (Nicotine 21 Mg Patch.Td24) 21 mg TRANSDERMA DAILY PRN PRN Reason: smoking cessation Nicotine Polacrilex (Nicotine Polacrilex 2 Mg Gum) 4 mg BUCCAL Q2H PRN PRN Reason: Nicotine Cravings Olanzapine (Olanzapine 5 Mg Tablet) 5 mg PO TID PRN PRN Reason: agitation Risperidone (Risperidone 1 Mg Tablet) 1 mg PO BID [facility] Last Admin: 12/02/22 10:31 Dose: Not Given Trazodone HCl (Trazodone Hcl 50 Mg Tablet) 50 mg PO BEDTIME [facility] Last Admin: 12/01/22 20:28 Dose: Not Given Allergies Allergies Allergy/AdvReac Type Severity Reaction Status Date / Time No Known Allergies Allergy Verified 11/28/22 13:52 Assessment & Plan Assessment & Plan (1) Schizoaffective disorder, bipolar type: Status: Acute Code(s): F25.0 - Schizoaffective disorder, bipolar type Plan offer lithium. milieu therapy, groups. practice coping skills: showering, music, writing poetry or music, drinking tea, painting. dispo planning. Reason for continued inpatient stay Substantial Risk for: inability to function Time Spent With Patient Time: Total time managing care of this patient today ____ minutes.
[2022-12-02 22:15] VITALS: RESP 18
[2022-12-03 08:50] VITALS: BP 116/65; PULSE 83; RESP 20; TEMP 36.6; O2SAT 97
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
--- NOTE | 2022-12-03 12:37 | PC.NURSE ---
Patient alert, responding appropriately to questions. Patient reports that she will be discharged today at 1700, her father will fruit or nut picker and transport her home. Patient denies SI/HI, denies AH/VH. Patient reports she plans on using headphones to manage her stressors at home, feels ready for discharge. Denies any concerns.
--- NOTE | 2022-12-03 17:13 | PC.NURSE ---
Reviewed all patient belongings/valuable and discharge instruction. Patient verbalized understanding of instructions, and stated that all belongings were accounted for. Patient continues to maintain that she is safe and ready for discharge. Patient discharged to care of her father.
== END 2022-12-03 17:10 | disposition home or self-care (01) | DRG 750 ==
LOC: HO.ED 16:12 → HO.PADLT16 11-29 14:38
PROVIDERS: Admitting Provider Psychiatry & Neurology Psychiatry; Emergency Provider Student in an Organized Health Care Education/Training Program; Visit Provider Psychiatry & Neurology Psychiatry
DX: F25.0 Schizoaffective disorder, bipolar type (principal); N39.0 Urinary tract infection, site not specified; Z20.822 Contact with and (suspected) exposure to COVID-19; Z79.899 Other long term (current) drug therapy
CPT/HCPCS: 36415; 80053; 80061; 80307; 81001; 81025; 83036; 85025; 87635; 99285; S9485

== ENCOUNTER → 2023-11-22 12:52 | Outpatient (REF) | payer MEDICAID, SELFPAY ==
[2023-11-22 13:09] LABS: MANUAL DIFF FLAG NO
--- NOTE | 2023-11-22 13:14 | ECG_ITS ---
Test Reason : z79.899 Blood Pressure : / mmHG Vent. Rate : 071 BPM Atrial Rate : 071 BPM P-R Int : 130 ms QRS Dur : 074 ms QT Int : 414 ms P-R-T Axes : 038 001 037 degrees QTc Int : 449 ms Normal sinus rhythm with sinus arrhythmia Normal ECG No previous ECGs available Referred By: JOSEP MERCER Electronically Signed By:ISELA JAIN MD
[2023-11-22 13:56] LABS: Basophils Percent Auto 0.1 % (0-2); Eosinophils Absolute Auto 0.1 X10*3/uL (0.0-0.4); Eosinophils Percent Auto 0.7 % (0-4); Hematocrit 40.1 % (37.0-47.0); Hemoglobin 13.4 g/dl (12.0-16.0); Imm Gran Abs Auto 0.06 X10*3/uL (0.00-0.03); Imm Gran Pct Auto 0.7 % (0.0-0.4); Lymphocytes Absolute Auto 3.3 X10*3/uL (1.2-4.9); Lymphocytes Percent Auto 37.6 % (20-40); Mean Corpuscular HGB Conc 33.4 g/dl (31.0-35.0); Mean Corpuscular Hemoglobin 26.2 pg (27.0-33.0); Mean Corpuscular Volume 78.3 fL (80.0-98.0); Mean Platelet Volume 10.4 fL (9.4-12.3); Monocytes Absolute Auto 0.5 X10*3/uL (0.1-1.2); Monocytes Percent Auto 5.9 % (2-11); Neutrophils Absolute Auto 4.8 x10*3/uL (2.0-8.3); Platelet Count 328 X10*3/uL (160-400); Red Blood Count 5.12 X10*6/uL (4.20-5.50); Red Cell Distribution Width 14.4 % (11.0-16.0); White Blood Count 8.6 X10*3/uL (4.8-10.8)
[2023-11-22 14:39] LABS: Alanine Aminotransferase 27 U/L (0-31); Alkaline Phosphatase 91 U/L (39-117); Anion Gap 12 (12-20); Aspartate Amino Transferase 29 U/L (5-31); Bilirubin Total 0.6 mg/dL (0.0-1.0); Blood Urea Nitrogen 10 mg/dL (9-16); Calcium 9.1 mg/dL (8.4-10.2); Carbon Dioxide 25 mmol/L (22-29); Chloride 105 mmol/L (96-108); Cholesterol 242 mg/dL (<200); Estimated Glomerular Filt Rate > 60; Glucose Random 150 mg/dL (60-115); HDL Cholesterol 46 mg/dL (>40); LDL Cholesterol Calculated 164 mg/dL (<100); Potassium 3.9 mmol/L (3.3-5.1); Sodium 138 mmol/L (135-145); Total Protein 7.4 g/dL (6.5-8.0); Triglycerides 162 mg/dL (<150)
== END ==
LOC: HO.CARD 12:52
PROVIDERS: PCP Physician Assistant Medical; Visit Provider Registered Nurse
DX: Z79.899 Other long term (current) drug therapy (principal)
CPT/HCPCS: 36415; 80053; 80061; 85025; 93005

== ENCOUNTER → 2023-11-22 13:14 | Outpatient (BNV) | payer MEDICAID, SELFPAY | PROVIDERS: PCP Physician Assistant Medical; Visit Provider Internal Medicine Cardiovascular Disease | DX: I49.8 Other specified cardiac arrhythmias (principal) | CPT/HCPCS: 93010 ==

== ENCOUNTER → 2024-10-21 11:25 | Outpatient (REF) | payer MEDICAID, SELFPAY ==
--- NOTE | 2024-10-21 11:34 | ECG_ITS ---
Test Reason : 779.797 Blood Pressure : */* mmHG Vent. Rate : 84 BPM Atrial Rate : 84 BPM P-R Int : 126 ms QRS Dur : 70 ms QT Int : 366 ms P-R-T Axes : 46 -6 27 degrees QTcB Int : 432 ms Normal sinus rhythm Normal ECG When compared with ECG of 22-Nov-2023 13:22, No significant change was found Referred By: Gloria Brar Electronically Signed By: ISELA JAIN MD
[2024-10-21 12:00] LABS: MANUAL DIFF FLAG NO
[2024-10-21 13:16] LABS: Basophils Percent Auto 0.2 % (0-2); Eosinophils Percent Auto 0.2 % (0-4); Hemoglobin 12.3 g/dl (12.0-16.0); Imm Gran Abs Auto 0.03 X10*3/uL (0.00-0.03); Imm Gran Pct Auto 0.3 % (0.0-0.4); Lymphocytes Absolute Auto 3.5 X10*3/uL (1.2-4.9); Lymphocytes Percent Auto 40.2 % (20-40); Mean Corpuscular HGB Conc 31.5 g/dl (31.0-35.0); Mean Corpuscular Hemoglobin 24.1 pg (27.0-33.0); Mean Corpuscular Volume 76.5 fL (80.0-98.0); Mean Platelet Volume 10.4 fL (9.4-12.3); Monocytes Absolute Auto 0.4 X10*3/uL (0.1-1.2); Monocytes Percent Auto 4.8 % (2-11); Neutrophils Absolute Auto 4.7 x10*3/uL (2.0-8.3); Neutrophils Percent Auto 54.3 % (45-73); Platelet Count 371 X10*3/uL (160-400); Red Cell Distribution Width 15.6 % (11.0-16.0); White Blood Count 8.7 X10*3/uL (4.8-10.8)
[2024-10-21 13:49] LABS: Alanine Aminotransferase 31 U/L (0-31); Albumin Level 4.2 g/dL (3.5-5.0); Alkaline Phosphatase 82 U/L (39-117); Anion Gap 12 (12-20); Aspartate Amino Transferase 31 U/L (5-31); Bilirubin Total 0.4 mg/dL (0.0-1.0); Blood Urea Nitrogen 9 mg/dL (9-16); Calcium 9.4 mg/dL (8.4-10.2); Carbon Dioxide 23 mmol/L (22-29); Chloride 108 mmol/L (96-108); Cholesterol 192 mg/dL (<200); Estimated Glomerular Filt Rate > 60; Glucose Random 92 mg/dL (60-115); HDL Cholesterol 42 mg/dL (>40); LDL Cholesterol Calculated 116 mg/dL (<100); Potassium 4.3 mmol/L (3.3-5.1); Sodium 139 mmol/L (135-145); Total Protein 7.3 g/dL (6.5-8.0); Triglycerides 172 mg/dL (<150)
--- OUTSIDE RECORDS SUMMARY | 2024-10-21 13:59 | XMS_ITS | Encounter Summary ---
Author Organization [facility] Address [address] [place] [address] Care Team Providers Care Construction Carpenters Helper Name Role Phone Urban Barber PA-C Primary Care Provider [phone] Reason for Visit * Reason Comments PAP Smear Pap no concern Encounter Details Date Type Department Care Team (Latest Contact Info) Description 10/12/2024 2:20 PM EDT Office Visit [facility] [address] [place] [phone] Urban Barber PA-C [address] [place] [phone] Pap smear, as part of routine gynecological examination (Primary Dx); Papanicolaou smear for cervical cancer screening; Diabetes mellitus, new onset (HCC-CMS) Social History Tobacco Use Types Packs/Day Years Used Date Smoking Tobacco: Never Smokeless Tobacco: Never Alcohol Use Standard Drinks/Week Comments Never 0 (1 standard drink = 0.6 oz pur e alcohol) Social Connections Answer Date Recorded Connectedness 1 10/12/2024 Financial Resource Strain Answer Date R ecorded Financial Resource Strain 1 2024 Stress Answer Date Recorded Stress 1 10/12/2024 Physical Activity Answer Date Recorded Physical Activity 0 07/27/2019 Food Insecurity Answer Date Recorded Food 1 10/12/2024 Transportation Needs Answer Date Record ed Transportation 1 10/12/2024 Housing Stability Answer Date Recorded Housing 1 10/12/2024 Safety and Environment Answer Date Bernard rded Safety 1 10/12/2024 Utilities Answer Date Recorded Utilities 1 10/12/2024 Employment Answer Date Recorded Stress 0 10/16/2021 Comments No Sex and Gender Information Value Date Recorded Sex Assigned at Female 07/27/2019 12:37 PM PST Legal Sex Female 12:11 PM PST Gender Identity Female 07/27/2019 12:37 PM PST Sexual Orientation Straight 07/27/2019 6: 21 PM PST documented as of this encounter Progress Notes * Urban Barber PA-C - 10/12/2024 2:43 PM EDT Viridiana Snow is a 24 year old female here for PAP. Last menstrual period was Patient's last menstrual period was 05/24/2024.. Menses began at age 14 yo. Length of menstrual cycle is typically 5 days and duration of menses is 28 days Menses are characterized as regular. Sexual hx: Social History Substance and Sexual Activity Sexual Activity Not Currently Partners: Male control/protection: Implant Past STD hx: none. Current STD sx's: none. Would like testing? No history: Obstetric History The patient has not been asked about . Current contraception: nexplanon Concerns with contraception: none Last pap smear: Last Pap: 07/18/2022 ( ; Next Screenin07/18/2023 ) Hx HPV: No. Family hx of breast, ovarian, cervical, uterine cancer: Family Cancer History None PE: Cloud Physicist present: YES Patient's last menstrual period was 05/24/2024. Previous Abnormal PAP: No Indication: (X ) Routine ( )High Risk ( )Hx of ASCUS, [place], [place] Clinical History: ( )Abnormal Bleeding ( ) ( )Post ( )Postmenopausal ( )Hysterectomy ( )[place] ( )Supracervical ( )Oral Contraceptive ( )IUD ( )HRT ( )Radiation ( )LEEP/Cone/Colpo/Cryo Date: Methodololgy: ( X)Thin Prep ( )Sure Path ( )Conventional # slides LMP 05/24/2024 (nexplanon , taking it out october 30) OB Status Having periods Smoking Status Never There is no height or weight on file to calculate BMI. General appearance: alert and oriented times 3. External Genitalia: normal appearing with no masses, tenderness or lesions Cervix: no lesions or cervical motion tenderness Adnexa: no masses palpable, nontender A&P: Z01.419 Pap smear, as part of routine gynecological examination (primary encounter diagnosis) Plan : THIN PREP IMAGE PAP + HPV RNA E6/E7 W/RFLX HPV 16, 18/45 Z12.4 Papanicolaou smear for cervical cancer screening Plan : THIN PREP IMAGE PAP + HPV RNA E6/E7 W/RFLX HPV 16, 18/45 documented in this encounter Miscellaneous Notes * Patient Instructions - Urban Barber PA-C - 10/12/2024 4:34 PM EDT If you are not able to keep your appointment please call 24-48 hours before your appointment to cancel or reschedule. documented in this encounter Plan of Treatment Upcoming Encounters Date Type Department Care Team (Late st Contact Info) Description 11/10/2024 1:00 PM EDT Office Visit [facility] [address] [place] [address] Urban Barber PA-C [address] [place] [address] Scheduled Orders Name Type Priority Associated Diagnoses Orde r Schedule BLOOD COUNT COMPLETE AUTO&AUTO DIFRNTL WBC Lab Routine Diabetes mellitus, new onset (HCC-CMS) Ordered: 10/12/2024 COMPREHENSIVE METABOLIC PANEL Lab Routine Diabetes mellitus, new onset (HCC-CMS) Ordered: 10/12/2024 HEMOGLOBIN GLYCOSYLATED A1C Lab Routine Diabetes mellitus, new onset (HCC-CMS) Ordered: 10/12/2024 LIPID PANEL Lab Routine Diabetes mellitus, new onset (HCC-CMS) Ordered: 10/12/2024 documented as of this encounter Procedures Procedure Name Priority Date/Time Associated Diagnosis Comments THIN PREP IMAGE PAP + HPV RNA E6/E7 W/RFLX HPV 16, 18/45 Routine 10/12/2024 2:44 PM EDT Pap smear, as part of routine gynecological examination Papanicolaou smear for cervical cancer screening documented in this encounter Results * THIN PREP IMAGE PAP + HPV RNA E6/E7 W/RFLX HPV 16, 18/45 (10/12/2024 2:44 PM EDT) CLINICAL INFORMATION See Note [employer] Comment:ROUTINE EXAM LMP See Note [employer] Comment:[id number] PREV. PAP See Note [employer] Comment:NONE GIVEN PREV. BX See Note [employer] Comment:NONE GIVEN SOURCE See Note [employer] Comment:Cervix STATEMENT OF ADEQUACY See Note [employer] Comment: Satisfactory for evaluation. Endocervical/transformation zone component present. INTERPRETATION/RESU LT See Note [employer] Comment: Cytology Results: Negative for intraepithelial lesion or malignancy. COMMENT See Note [employer] Comment: This Pap test has been evaluated with computer assisted technology. Microscopic features present suggestive of an interfering substance, including cellular debris, mucus, or possible lubricant (patient or provider use). Use of lubricant is not recommended. CARDIAC RN See Note [facility] [employer] Comment: ALS, CT(ASCP) CT screening location: [address] ??[address] REVIEW CARDIAC RN See Note [employer] Comment: SL, CT(ASCP) CT screening location: [address] ??[address] COMMENT [employer] HPV MRNA E6/E7 Not Detected Not Detected [employer] Comment: Methodology: Electric Motor Mechanic-Mediated Amplification This assay detects E6/E7 viral messenger RNA (mRNA) from 14 high-risk HPV types (16,18,31,33,35,39,45,51,52,56,58,59,66,68). Cervical sources are required for HPV testing. If a vaginal source from a patient who has had a total hysterectomy with removal of cervix was submitted, please contact the testing laboratory for alternative testing options. For additional information, please refer to http://education.[employer]/faq/HUZ244q1 (This link if provided for information/ educational purposes only.) Swab Endocervical structure / Unknown 10/12/2024 2:44 PM EDT 10/13/2024 7:47 AM EDT Narrative [facility] [facility] - 10/15/2024 2:48 PM EDT EXPLANATORY NOTE: The Pap is a screening test for cervical cancer. It is not a diagnostic test and is subject to false negative and false positive results. It is most reliable when a satisfactory sample, regularly obtained, is submitted with relevant clinical findings and history, and when the Pap result is evaluated along with historic and current clinical information. us Urban Barber PA-C LAB - NO BLOOD DRAW Final Re sult [email or web address] [address] [address], [email or web address] [address] [place] [address] documented in this encounter Visit Diagnoses Diagnosis Pap smear, as part of routine gynecological examination- Primary Screening for malignant neoplasm of the cervix Papanicolaou smear for cervical cancer screening Screening for malignant neoplasm of the cervix Diabetes mellitus, new onset ([facility]) Type II or unspecified type diabetes mellitus without mention of complication, not stated as uncontrolled documented in this encounter Additional Health Concerns Assessment Noted Time PHQ-9 Depression Total Score: 0 10/13/19 25 2:32 PM PDT documented as of this encounter Care Teams Construction Carpenters Helper Relationship Specialty Start Date End Date Urban Barber PA-C [address] [place] [address] PCP - General [facility] 03/10/20 documented as of this encounter
--- OUTSIDE RECORDS SUMMARY | 2024-10-21 13:59 | XMS_ITS ---
Author Organization [facility], Mem[facility] Address [address] [place] [address] Care Team Providers Care Fire Sprinkler Installer Name Role Phone [facility]e [facility] Primary Care Provider Encounters Encounter Location Date Provider Diagnosis [facility], [address] [address] 04/26/2023 [facility] Plan Of Treatment No Information Progress Notes * ANIRUDH JORDANINEDOB:[birth year] (24 yo F)Acc No.[id number]:04/26/2023 Progess Note Patient:?NIKKI NICOLE Provider:?Meme Ash MD :2000???Age:22 Y???Sex:Female D ate:04/26/2023 Address:[address] [place], [place] [id number] Subjective: * Chief Complaints: * ??? * Medical History:? Objective: * Vitals:? Assessment: Plan: * Treatment: * Images: * Electronic signature of Meme Ash MD on 10/21/2024 at 01:58 PM EDT Sign off status: Pending * Provider:?Meme Ash MD Date:? 3 Generated for Prakashi keyonna/Miriam/eTransmitting on:?10/21/2024 01:58 PM EDT
--- OUTSIDE RECORDS SUMMARY | 2024-10-21 13:59 | XMS_ITS | Patient Health Record ---
Author Organization [facility], [facility] Address [address] [place] [address] Care Team Providers Care Forensic Chemist Name Role Phone Meme Ash Primary Care Provider Reason For Referral No Information Medications Medication SIG (Take, Route, Frequency, Duration) Notes Start Date End Date Status Abilify 10 MG 1 tablet Orally Once a day Active hydrOXYzine HCl 25mg up to twice a day Active Immunizations Vaccine Route Administration Date Status Comme nts BOOSTERIX IM 04/27/2011 Administered BOOSTERIX IM Intramuscular 05/29/2017 Administered DTaP Unknown 2000 Administered DTaP Unknown 02/14/2001 Administered DTaP Unknown 04/22/2001 Administered DTaP Unknown 01/12/2004 Administered DTaP Unknown 09/28/2004 Administered FLU IM 04/25/2010 Administered FLU IM 04/27/2011 Administered FLU IM 04/29/2012 Administered FLU im 04/01/2013 Administered FLU IM Intramuscular 05/06/2014 Administered FLU IM Intramuscular 05/24/2015 Administered FLU IM Intramuscular 05/29/2016 Administered FLU IM Intramuscular 05/01/2017 Administered FLU MIST Unknown 07/09/2007 Administered GARDISIL IM 04/29/2012 Administered GARDISIL IM Intramuscular 05/05/2013 Administered GARDISIL IM Intramuscular 05/06/2014 Administered HEP B Unknown 2000 Administered HEP B Unknown 06/17/2001 Administered HEP B Unknown 01/12/2004 Administered HIB Unknown 2000 Administered HIB Unknown 02/14/2001 Administered HIB Unknown 04/22/2001 Administered HIB Unknown 04/21/2003 Administered IPV Unknown 2000 Administered IPV Unknown 02/14/2001 Administered IPV Unknown 01/12/2004 Administered IPV Unknown 09/28/2004 Administered MENACTRA IM 04/27/2011 Administered MENACTRA IM Intramuscular 05/29/2017 Administered MMR Unknown 04/21/2003 Administered MMR Unknown 09/28/2004 Administered PCV7 Unknown 2000 Administered PCV7 Unknown 02/14/2001 Administered PCV7 Unknown 04/22/2001 Administered PCV7 Unknown 04/21/2003 Administered VARIVAX Unknown 09/11/2001 Administered VARIVAX IM 04/27/2011 Administered Social History Tobacco Use: Social History Observation Description Date Details (start date - stop date) Never Smoker NA - NA Tobacco Use: Question Answer Notes Are you a: never smoker Problems Problem Type SNOMED Code ICD Code Onset Dates Problem Status W/U Status Risk Notes Problem Carious exposure of pulp (533464909) Dental caries extending into pulp (521.03) Active confirmed Problem Cracked tooth (975571261) Cracked tooth (521.81) Active confirmed Problem Open wound without complication (38654346) SKIN LACERATION, NEC (879.8) Active confirmed Problem Well child visit (764541545) Routine or child health check (V20.2) Active confirmed Problem Jaw pain (856749509) Jaw pain (784.92) Active confirmed Problem 1812984 Gastritis (K29.70) Active confirmed Problem 125062160 Dizziness (R42) Active confirmed Problem 30551131 Epigastric abdominal pain (R10.13) Active confirmed Problem Well child visit (658287743) Routine child health exam (Z00.129) Active confirmed Problem 130274873 Abdominal pain, acute, left upper quadrant (R10.12) Active confirmed Problem Anxiety state (853474829) Anxiety state, unspecified (300.00) Active confirmed Problem Oppositional defiant disorder (84482309) Oppositional defiant disorder (313.81) Active confirmed Problem Acute pharyngitis (443641517) pharyngitis, acute (462) Active confirmed Problem Croup (82000160) Croup (464.4) Active confirmed Problem Shoulder joint pain (667719037) Pain in joint, shoulder region (719.41) Active confirmed Problem Muscle spasm (22131829) Muscle Spasm (728.85) Active confirmed Problem Sleep disturbance (14010459) Sleep disturbance, unspecified (780.50) Active confirmed Problem Mental disorder (83884118) Unspecified mental or behavioral problem (V40.9) Active confirmed Problem 98181705 Generalized anxiety disorder (F41.1) Active confirmed Problem 39446879 Sleep disorder, unspecified (G47.9) Active confirmed Problem Child health medical examination (661521175) Encounter for routine child health examination without abnormal findings (Z00.129) Active confirmed Problem 0307092 Suicidal ideatio n (R45.851) Active confirmed Problem 562365841 Episode of recurrent major depressive disorder, unspecified depression episode severity (F33.9) Active confirmed Problem Viral disease (11800397) Viral Syndrome-Unspecifi ed viral infection, in conditions classified elsewhere and of unspecified site (079.99) Active confirmed Problem Headache (22938910) Headache (784.0) 05/29 Active confirmed Problem Cough (77883496) Cough (786.2) Active confirmed Problem Common cold (42767077) Rhinitis, Acute nasopharyngitis (common cold) (460) Active confirmed Problem Acute tonsillitis (92154419) Tonsillitis, acute (463) Active confirmed Problem Gastroduodenitis (277833015) Unspecified gastritis and gastroduodenitis without mention of hemorrhage (535.50) Active confirmed Problem Constipation (01504347) constipation, unspecified (564.00) Active confirmed Problem Acute pancreatitis (235020475) Acute pancreatitis (577.0) Active confirmed Problem Acne vulgaris (29558279) acne vulgaris (706.1) Active confirmed Problem Dizziness and giddiness (993399090) Dizziness and giddiness (780.4) 015 Active confirmed Problem Vaccination given (739874093) Encounter for immunization (Z23) 017 Active confirmed Problem 691476278 Anxiety disorder , unspecified (F41.9) 016 Active confirmed Problem 186779226 Dysmenorrhea, unspecified (N94.6) Active confirmed Problem 99697122 Epigastric pain (R10.13) 018 Active confirmed Problem 306397623 Contusion of rig ht great toe with damage to nail, initial encounter (S90.211A) Active confirmed Problem 789691377 Viral gastroenteritis (A08.4) 018 Active confirmed Problem 560034258 Abdominal pain, periumbilical (R10.33) Active confirmed Problem 40535441 Menstrual irregularity (N92.6) 016 Active confirmed Problem 882381636 Gastroesophageal reflux disease, esophagitis presence not specified (K21.9) Active confirmed Problem 9769559 Gastritis withou t bleeding, unspecified chronicity, unspecified gastritis type (K29.70) Active confirmed Problem 34792955925122 History of pancreatitis (Z87.19) 018 Active confirmed Plan Of Treatment No Information Insurance Providers Payer Name Payer Address Payer Phone Subscriber Number Group Number Insured Name Patient Relationship to Insured Coverage Start Date Coverage End Date [facility] [employer] [address] [address] [place] [address] [id number] NICOLE JORDAN Self - patient is the insured [employer] [address] [place] [address] [id number] NICOLE JORDAN Self - patient is the insured Medical (General) History Medical History History ICD Code depression pancreatitis anxiety
--- OUTSIDE RECORDS SUMMARY | 2024-10-21 13:59 | XMS_ITS | Clinical Summary ---
Author Organization [facility] Address [address] [place] [address] Care Team Providers Care Metal Drawer Name Role Phone Urban Barber PA-C Primary Care Provider [phone] Source Comments PLEASE NOTE, if this patient is a minor, it may be UNLAWFUL to discuss sensitive information that is contained in these records (such as FAMILY PLANNING, MENTAL HEALTH or SUBSTANCE ABUSE) with the minor patient's parent or other person without the patient's specific authorization.[facility] Allergies Active Allergy Reactions Criticality Noted Date Comments Chlorpromazine 02/26/2024 Other Reaction(s): Tachycardia - pulse Lactose 07/02/2022 Perphenazine 02/26/2024 Other Reaction(s): Hypnagogic hallucinations Medications NEXPLANON 68 mg implant Active FREESTYLE LITE METER monitoring kit CHECK GLUCOSE 2 TIMES A DAY AND NEEDED FOR HYPERGLYCEMIA Active benztropine (COGENTIN) 1 mg tabletIndication s:Disorganized schizophrenia (HCC-CMS) TAKE 1 TABLET BY MOUTH EVERY DAY FOR 30 DAYS 30 Tablet 024 Active traZODone (DESYREL) 50 mg tabletIndication s:Disorganized schizophrenia (HCC-CMS) TAKE 1 TABLET BY MOUTH NIGHTLY AT BEDTIME FOR 90 DAYS. 90 Tablet 024 Active haloperidoL (HALDOL) 5 mg tablet Take 5 mg by mouth nightly at bedtime Active ziprasidone HCL (GEODON) 60 mg capsule Take 60 mg by mouth Active hydrocortisone 2.5 % creamIndications :Dermatitis Apply topically 2 (two) times daily 30 g 5 07/31/2 024 Active blood sugar diagnostic (BLOOD GLUCOSE TEST) stripsIndication s:Diabetes mellitus, new onset (HCC-CMS) Use to test blood glucose twice daily. (Freestyle Lite) 100 Each 024 Active lancets 28 gaugeIndications :Diabetes mellitus, new onset (HCC-CMS) Use to test blood glucose twice daily. (Freestyle Lite) 100 Each 024 Active alcohol swabsIndications :Diabetes mellitus, new onset (HCC-CMS) Use to test blood glucose twice daily. 100 Each 024 Active DEXCOM G7 SCUBA DIVER misc USE WITH DEXCOM G7 SENSORS TO MONITOR GLUCOSE LEVELS Authorized by: QUINTIN WOMACK 024 Active DEXCOM G7 SENSOR latrice USE TO MONITOR BLOOD GLUCOSE LEVELS, CHANGE EVERY 10 DAYS Authorized by: QUINTIN WOMACK 024 Active hydrOXYzine pamoate (VISTARIL) 50 mg capsule TAKE 1 CAPSULE BY MOUTH EVERY DAY NEEDED Authorized by: Lamar MERCER 024 Active insulin glargine (LANTUS SOLOSTAR U-100 INSULIN) 100 unit/mL (3 mL) penIndications:T ype 1 diabetes mellitus with hyperglycemia (HCC-CMS) Inject 32 Units into the skin nightly at bedtime 30 mL 1 024 Active insulin lispro (HUMALOG KWIKPEN INSULIN) 100 unit/mL injection penIndications:T ype 1 diabetes mellitus with hyperglycemia (HCC-CMS) Inject 7 Units into the skin 3 (three) times daily with meals 15 mL 1 024 Active VITAMIN D3 25 mcg (1,000 unit) capsuleIndicatio ns:Vitamin D deficiency TAKE 1 CAPSULE BY MOUTH EVERY DAY 90 Capsule 1 025 Active pen needle, diabetic (BD ULTRA-FINE MINI PEN NEEDLE) 31 gauge x 10/11 ndleIndications: Diabetes mellitus, new onset (HCC-CMS) OF 02/26/2024: USE DIRECTED TO INJECT INSULIN FOUR TIMES A DAY 100 Each 3 025 Active metFORMIN (GLUCOPHAGE) 500 mg tabletIndication s:Diabetes mellitus, new onset (HCC-CMS) TAKE 1 TABLET BY MOUTH TWICE A DAY 180 Tablet 025 Active BD ULTRA-FINE MINI PEN NEEDLE 31 gauge x 3/16 ndleIndications: Diabetes mellitus, new onset (HCC-CMS) As of 02/26/2024: USE DIRECTED TO INJECT INSULIN FOUR TIMES A DAY Strength: 31 gauge x 316 100 Each 3 024 2024 Discontinued metFORMIN (GLUCOPHAGE) 500 mg tabletIndication s:Diabetes mellitus, new onset (HCC-CMS) Take 1 Tablet by mouth 2 (two) times daily 180 Tablet 1 024 2024 Discontinued Active Problems Problem Noted Date Diagnosed Date Type 1 diabetes mellitus with hyperglycemia (HCC -CMS) 05/26/2024 Diabetes mellitus, new onset (HCC-CMS) Bipolar disorder in remission ([facility]) 02/26/20 Class 1 obesity 10/23/2022 10/23/2022 Disorganized schizophrenia ([facility]) 07/27/2019 Encounters Date Type Department Care Team Description 10/12/2024 2:20 PM EDT Office Visit [facility] [address] [place] [phone] Urban Barber PA-C Pap smear, as part of routine gynecological examination (Primary Dx); Papanicolaou smear for cervical cancer screening; Diabetes mellitus, new onset ([facility]) 07/28/2024 Interim Notes [facility] [address] [place] [phone] Fransisca Reyes MA from Last 3 Months Immunizations Immunization Administration Dates Next Due Flu, Preservative Free 09/20/2021,06/16/2020, HPV 9 (Gardasil) 02/26/2024,08/24/2019 Hep B,adult,adjuvanted (HEPLISAV) 02/26/2024 Influenza (FLUBLOK),recombinant,injectable,preservati ve Free 05/26/2024 PFIZER COVID VACCINE, PURPLE CAP, 12+ 09/25/2021 ,03/15/2021,02/22/2021 TDAP 08/24/2019 Social History Tobacco Use Types Packs/Day Years Used Date Smoking Tobacco: Never Smokeless Tobacco: Never Tobacco Cessation:Counseling Given: Yes Alcohol Use Standard Drinks/Week Comments Never 0 [...] Orientation Straight 07/27/2019 6: 21 PM PST Last Filed Vital Signs Vital Sign Reading Time Taken Comments Blood Pressure 100/70 05/26/2024 2:18 PM EDT Pulse 98 05/26/2024 2:18 PM EDT Temperature 36.8 ??C (98.2 ??F) 05/26/2024 2:18 PM ED T Respiratory Rate 18 05/26/2024 2:18 PM EDT Oxygen Saturation 99% 05/26/2024 2:18 PM EDT Inhaled Oxygen Concentration - - Weight 94.8 kg (209 lb) 05/26/2024 2:18 PM EDT Height 154.9 cm (5' 1 ) 05/26/2024 2:18 PM EDT Body Mass Index 39.49 05/26/2024 2:18 PM EDT Plan of Treatment Upcoming Encounters Date Type Department Care Team (Late st Contact Info) Description 11/10/2024 1:00 PM EDT Office Visit [facility] [address] [place] [address] Urban Barber PA-C [address] [facility] [place], [place] [phone] Health Maintenance Due Date Last Done Comments Dental Examination 2000 Imm-Pneumococcal (1 of 2 - PCV) 2019 LARC-Nexplanon implant 07/21/2023 07/21/2020 Imm-Hepatitis B (2 of 2 - Cp G 2-dose series) 03/25/2024 02/26/2024 Fga-MJCNA-09 (4 - season) 2024 09/25/2021, 03/15/2021, 02/22/2021 Imm-HPV (3 - 3-dose series) 05/20/2024 02/26/2024, 0 08/24/2019 Diabetes HbA1c 07/07/2024 04/07/2024, 07/31, 10/11/2020 Tobacco Screening 02/25/2025 02/26/2024 Chlamydia Screening 04/07/2025 04/07/2024, 10/27/2022, 08/24/2019 Gonorrhea Screening 04/07/2025 04/07/2024, 10/27/2022, 08/24/2019 Lipid Screening 04/07/2025 04/07/2024, 07/31, 10/11/2020, Additional history exists Serum Creatinine 04/07/2025 04/07/2024, , 08/24/2019 Urine Albumin Creatinine Rat io Screening 04/07/2025 04/07/2024, 10/23/2022 Retinopathy Screening 05/25/2025 05/25/2024 Hypertension Screening (#1) 05/26/2025 Diabetes Foot Exam 06/18/2025 06/18/2024 Annual Preventive Care Visit 10/12/2025, 07/18/2022, 09/20/2021, Additional history exists Relationship Safety Screening/Counseling 10/12/2025 10/12/2024, 05/07/2023, 09/20/2021, Additional history exists HPV Screening 07/18/2027 07/18/2022 Cervical Cancer Screening 10/13/2027 Pap + HPV 10/13/2027 10/12/2024, 07/18/2022 Pap Smear 10/13/2027 10/12/2024, 07/18/2022 Imm-DTaP/Tdap/Td (2 - Td or Tdap) 08/24/2029 020 HIV Screening Completed 10/11/2020, 08/24/2019 Hepatitis C Screening Completed 10/11/2020 HPV Genotyping Discontinued 07/18/2022 Imm-Influenza Completed 05/26/2024, 08/30, 06/16/2020, Additional history exists Alcohol and Drug Screen Completed 10/13/19, 02/26/2024, 05/07/2023, Additional history exists Depression Annual Screen Completed 10/12/2024 Cervical Ablation/Cold-Knife Conization Discontinued Cervical Cryotherapy Discontinued Colposcopy Discontinued Endometrial Biopsy Discontinued Excision/Leep Discontinued Vaginal Pap Discontinued Vulvoscopy Discontinued Procedures Procedure Name Priority Date/Time Associated Diagnosis Comments THIN PREP IMAGE PAP + HPV RNA E6/E7 W/RFLX HPV 16, 18/45 Routine 10/12/2024 2:44 PM EDT Pap smear, as part of routine gynecological examination Papanicolaou smear for cervical cancer screening REFERRAL SCANNED DOCUMENT 08/10/2024 3:00 AM EST EYE EXAM 05/25/2024 3:00 AM EDT COMPREHENSIVE METABOLIC PANEL Routine 04/07/2024 10:17 AM EDT Diabetes mellitus, new onset (HCC-CMS) LIPID PANEL Routine 04/07/2024 10:17 AM EDT Diabetes mellitus, new onset (HCC-CMS) MICROALBUMIN/CREATINI NE RATIO, URINE, RANDOM Routine 04/07/2024 10:17 AM EDT Diabetes mellitus, new onset (HCC-CMS) C TRACHOMATIS/N GONORRHOEAE RNA,TMA Routine 04/07/2024 10:17 AM EDT Routine screening for STI (sexually transmitted infection) HEMOGLOBIN GLYCOSYLATED A1C Routine 04/07/2024 10:17 AM EDT Diabetes mellitus, new onset (HCC-CMS) HPV SHELDON 16/18 + 45 Routine 07/18/2022 3 :28 PM EST ANTIBODY HIV-1&HIV-2 SINGLE RESULT Routine 10/11/2020 4:30 PM EDT Encounter for screening for HIV HEPATITIS C ANTIBODY Routine 10/11/2020 4:30 PM EDT Need for hepatitis C screening test from Last 3 Months or Most Recently Relevant to Health Maintenance Results * THIN PREP IMAGE PAP + HPV RNA E6/E7 W/RFLX HPV 16, 18/45 (10/12/2024 2:44 PM EDT) CLINICAL INFORMATION See Note [facility] Comment:ROUTINE EXAM LMP See Note [facility] Comment:[id number] PREV. PAP See Note [facility] Comment:NONE GIVEN PREV. BX See Note [facility] Comment:NONE GIVEN SOURCE See Note [facility] Comment:Cervix STATEMENT OF ADEQUACY See Note [facility] Comment: Satisfactory for evaluation. Endocervical/transformation zone component present. INTERPRETATION/RESU LT See Note [facility] Comment: Cytology Results: Negative for intraepithelial lesion or malignancy. COMMENT See Note [facility] Comment: This Pap test has been evaluated with computer assisted technology. Microscopic features present suggestive of an interfering substance, including cellular debris, mucus, or possible lubricant (patient or provider use). Use of lubricant is not recommended. INSTRUCTOR BALLROOM DANCING See Note [facility] [employer] Comment: ALS, CT(ASCP) CT screening location: [address] ??[address] REVIEW INSTRUCTOR BALLROOM DANCING See Note [facility] Comment: SL, CT(ASCP) CT screening location: [address] ??[address] COMMENT [facility] HPV MRNA E6/E7 Not Detected Not Detected [facility] Comment: Methodology: Head Host/Hostess-Mediated Amplification This assay detects E6/E7 viral messenger RNA (mRNA) from 14 high-risk HPV types (16,18,31,33,35,39,45,51,52,56,58,59,66,68). Cervical sources are required for HPV testing. If a vaginal source from a patient who has had a total hysterectomy with removal of cervix was submitted, please contact the testing laboratory for alternative testing options. For additional information, please refer to http://education.[employer]/faq/DCT740t8 (This link if provided for information/ educational purposes only.) Swab Endocervical structure / Unknown 10/12/2024 2:44 PM EDT 10/13/2024 7:47 AM EDT Narrative [facility] - 10/15/2024 2:48 PM EDT EXPLANATORY NOTE: [...] - NO BLOOD DRAW Final Re sult [facility] [employer] [address] [address], [facility] [address] [phone] * REFERRAL SCANNED DOCUMENT (08/10/2024 3:00 AM EST) 08/10/2024 3:00 AM EST us Urban Barber PA-C SCAN REFERRAL Final Result * EYE EXAM (05/25/2024 3:00 AM EDT) 05/25/2024 3:00 AM EDT us Urban Barber PA-C OTHER Edited Resul t - Final * C TRACHOMATIS/N GONORRHOEAE RNA,TMA (04/07/2024 10:17 AM EDT) CHLAMYDIA TRACHOMATIS RNA, TMA NOT DETECTED NOT DETECTED [facility] NEISSERIA GONORRHOEAE RNA, TMA NOT DETECTED NOT DETECTED [facility] COMMENT [facility] Urine Urine specimen / Unknown 04/07/2024 10:17 AM EDT 04/07/2024 10:18 AM EDT Narrative [facility] [employer] - 04/11/2024 5:16 AM EDT FASTING:NO The analytical performance characteristics of this assay, when used to test SurePath(TM) specimens have been determined by [employer]. The modifications have not been cleared or approved by the FDA. This assay has been validated pursuant to the CLIA regulations and is used for clinical purposes. For additional information, please refer to https://education.[employer]/faq/GUT265 (This link is being provided for information/ educational purposes only.) Urban Barber PA-C LAB - NO BLOOD DRAW Edited R esult - Final Performing Organization Address [facility] de Phone Number [email or web address] [address] [place] [address], [employer] [address] [place] [phone] * MICROALBUMIN/CREATININE RATIO, URINE, RANDOM (04/07/2024 10:17 AM EDT) Pathologist [facility] CREATININE, RANDOM URINE 154 20 - 275 mg/dL [employer] [facility] MICROALBUMIN 0.3 mg/dL [facility] Comment: Reference Range Not established MICROALBUMIN/CREA TININE RATIO, RANDOM URINE 2 <30 mg/g creat [facility] Comment: The ADA defines abnormalities in albumin excretion as follows: Albuminuria Category ?Result (mg/g creatinine) Normal to Mildly increased ?? <30 Moderately increased ? 30-299 Severely increased ? > OR = 300 The ADA recommends that at least two of three specimens collected within a 3-6 month period be abnormal before considering a patient to be within a diagnostic category. Urine Urine specimen / Unknown 04/07/2024 10:17 AM EDT 04/07/2024 10:18 AM EDT Narrative [email or web address] - 04/11/2024 5:16 AM EDT FASTING:NO us Urban Barber PA-C LAB - NO BLOOD DRAW Final Re sult Performing Organization Address [facility] Co de Phone Number [email or web address] [address] [place] [address], [employer] [address] [place] [address] * (ABNORMAL) HEMOGLOBIN GLYCOSYLATED A1C (04/07/2024 10:17 AM EDT) [facility] HEMOGLOBIN A1C 9.1(H) <5.7 % of total Hgb [facility] Comment: For someone without known diabetes, a hemoglobin A1c value of 6.5% or greater indicates that they may have diabetes and this should be confirmed with a follow-up test. For someone with known diabetes, a value <7% indicates that their diabetes is well controlled and a value greater than or equal to 7% indicates suboptimal control. A1c targets should be individualized based on duration of diabetes, age, comorbid conditions, and other considerations. Currently, no consensus exists regarding use of hemoglobin A1c for diagnosis of diabetes for children. ?? Blood Blood / Unknown 04/07/2024 1 0:17 AM EDT 04/07/2024 10:18 AM EDT Narrative [employer] [facility] - 04/11/2024 5:16 AM EDT FASTING:NO Urban Barber PA-C LAB - BLOOD DRAW Edited Resu lt - Final [email or web address] [address] [address], [employer] [address] [address] * (ABNORMAL) LIPID PANEL (04/07/2024 10:17 AM EDT) [facility] CHOLESTEROL, TOTAL 193 <200 mg/dL [employer] [facility] HDL CHOLESTEROL 44(L) > OR = 50 mg/dL [facility] TRIGLYCERIDES 220(H) <150 mg/dL [facility] Comment: If a non-fasting specimen was collected, consider repeat triglyceride testing on a fasting specimen if clinically indicated. Michele et al. J. of Clin. Lipidol. 2015;9:129-169. LDL-CHOLESTEROL 115(H) 99 mg/dL (calc) [facility] Comment: Reference range: <100 Desirable range <100 mg/dL for primary prevention; ?? <70 mg/dL for patients with CHD or diabetic patients with > or = 2 CHD risk factors. LDL-C is now calculated using the Vicente calculation, which is a validated novel method providing better accuracy than the Friedewald equation in the estimation of LDL-C. Arnaldo LOUISE et al. RHETT. 2013;310(19): 8167-9896 (http://[employer]/faq/PMG181) CHOL/HDLC RATIO 4.4 <5.0 (calc) [facility] NON-HDL CHOLESTEROL 149(H) <130 mg/dL (calc) [facility] Comment: For patients with diabetes plus 1 major ASCVD risk factor, treating to a non-HDL-C goal of <100 mg/dL (LDL-C of <70 mg/dL) is considered a therapeutic option. Blood Blood / Unknown 04/07/2024 1 0:17 AM EDT 04/07/2024 10:18 AM EDT Narrative [email or web address] - 04/11/2024 5:16 AM EDT FASTING:NO Urban Barber PA-C LAB - BLOOD DRAW Final Resul t [email or web address] [address] [place] [address], [facility] [address] [place] [phone] * COMPREHENSIVE METABOLIC PANEL (04/07/2024 10:17 AM EDT) [facility] GLUCOSE 85 65 - 139 mg/dL [facility] Comment: ?Non-fasting reference interval UREA NITROGEN (BUN) 13 7 - 25 mg/dL [facility] CREATININE (blood) 0.84 0.50 - 0.96 mg/dL [facility] EGFR 100 > OR = 60 mL/min/1. 73m2 [facility] BUN/CREATININE RATIO SEE NOTE: [facility] Comment: ?? Not Reported: BUN and Creatinine are within ?? reference range. ? SODIUM 135 135 - 146 mmol/L [facility] POTASSIUM 3.7 3.5 - 5.3 mmol/L [facility] CHLORIDE 102 98 - 110 mmol/L [facility] CARBON DIOXIDE 25 20 - 32 mmol/L [facility] CALCIUM 9.2 8.6 - 10.2 mg/dL [facility] PROTEIN, TOTAL 6.8 6.1 - 8.1 g/dL [facility] ALBUMIN 4.1 3.6 - 5.1 g/dL [facility] GLOBULIN 2.7 1.9 - 3.7 g/dL (calc) [facility] ALBUMIN/GLOBULI N RATIO 1.5 1.0 - 2.5 (calc) [facility] BILIRUBIN, TOTAL 0.3 0.2 - 1.2 mg/dL [facility] ALKALINE PHOSPHATASE 86 31 - 125 U/L [facility] AST 13 10 - 30 U/L [facility] ALT 10 6 - 29 U/L [facility] Blood Blood / Unknown 04/07/2024 1 0:17 AM EDT 04/07/2024 10:18 AM EDT Narrative [facility] - 04/11/2024 5:16 AM EDT FASTING:NO us Urban Barber PA-C LAB - BLOOD DRAW Edited Resu lt - Final Performing Organization Address City/[facility]/ZIP Co de Phone Number [facility] [address] [address], [employer] [address] [phone] * HPV SHELDON 16/18 + 45 (07/18/2022 3:28 PM EST) HPV 16 RNA NOT DETECTED NOT DETECTED [facility] HPV 18/45 RNA NOT DETECTED NOT DETECTED [facility] Comment: Methodology: Head Host/Hostess Mediated Amplification Cervical sources are required for HPV testing. If a vaginal source from a patient who has had a total hysterectomy with removal of cervix was submitted, please contact the testing laboratory for alternative testing options. 07/18/2022 3:28 PM EST 07/19/2022 7:29 AM EST us Urban Barber PA-C LAB - NO BLOOD DRAW Final Re sult Performing Organization Address City/[facility]/ZIP Co de Phone Number [facility] [address] [address], [facility] [address] [facility] [address] [place] [address] * HEPATITIS C ANTIBODY (10/11/2020 4:30 PM EDT) Pathologist [facility] HEPATITIS C VIRUS SCREEN NEGATIVE NEGATIVE [facility] Blood Blood / Unknown 10/11/2020 4 :30 PM EDT 10/11/2020 4:49 PM EDT [facility] - 10/11/2020 8:28 PM EDT [employer] [address] Molecular Modeler - Yael Aguila MD PT ID [id number] ORD# [id number] us Urban Barber PA-C LAB - BLOOD DRAW Final Resul t Performing Organization Address [facility] Co de Phone Number [address] [address], * HIV-1 & HIV-2 ANTIBODIES (10/11/2020 4:30 PM EDT) [facility] HIV 1 AND 2 ANTIBODY SCREEN NEGATIVE NEGATIVE [facility] Comment: This assay is a 4th generation assay allowing for earlier detection of HIV infection by detecting the presence of the HIV-1 p24 antigen as well as the traditional antibodies to HIV type 1 (including group O) and type 2. ??Use of a 4th generation assay is the current CDC recommendation for HIV screening. Blood Blood / Unknown 10/11/2020 4 :30 PM EDT 10/11/2020 4:49 PM EDT [facility] - 10/11/2020 8:28 PM EDT [employer] [address] Molecular Modeler - Yael Aguila MD PT ID [id number] ORD# [id number] Urban Barber PA-C LAB - BLOOD DRAW Final Resul t Performing Organization Address City/[facility]/ZIP Co de Phone Number [address] [place] [address], from Last 3 Months or Most Recently Relevant to Health Maintenance Insurance [facility] [place] [address] [place] [employer] [address] [employer] Care Teams Metal Drawer Relationship Specialty Start Date End Date Urban Barber PA-C [address] [place] [address] PCP - General FAMILY MEDICINELATRELL 03/10/20
--- OUTSIDE RECORDS SUMMARY | 2024-10-21 13:59 | XMS_ITS | Clinical Summary ---
Author Organization [facility] it Address [address] [place] [address] Care Team Providers Care Binder Folder Operator Name Role Phone Urban Barber Primary Care Provider [phone] Surgical History Surgery Date Site/Laterality Comments OTHER SURGICAL HISTORY PROCEDURE: DENIES PREVIOUS SURGERY Medical History Medical History Date Comments Schizophrenia DX:Schizophrenia (HCC) Bipolar 1 disorder (CMS/HCC) DX: Bipolar 1 disorder (HCC) Family History Medical History Relation Name Comments Diabetes Mother Breast cancer Paternal Grandmother Colon cancer Neg Hx Prostate cancer Neg Hx Uterine cancer Neg Hx Relation Name Status Comments Mother Paternal Grandmother Social History Tobacco Use Types Packs/Day Years Used Date Smoking Tobacco: Never Smokeless Tobacco: Never Alcohol Use Standard Drinks/Week Comments Never 0 (1 standard drink = 0.6 oz pur e alcohol) Comments Unknown Sex and Gender Information Value Date Recorded Sex Assigned at Not on file Legal Sex Female 2:28 AM EST Gender Identity Not on file Sexual Orientation Not on file Obstetrics History Plan of Treatment Health Maintenance Due Date Last Done Comments Gonorrhea/Chlamydia Screening 2000 HPV Vaccines (1 - 3-dose series) 2015 DTaP,Tdap,and Td Vaccines (1 - Tdap) 2019 Hepatitis B Vaccines (1 of 3 - 19+ 3-dose series) 2019 Cervical Cancer Screening: P ap Smear 2021 Depression Screening 07/01/2022 HIV Screening 07/01/2022 Hepatitis C Screening 07/01/2022 Social Influencers of Health Screening 07/01/2022 COVID-19 Vaccine ( - 2023-2 5 season) 2024 Influenza Vaccine (#1) 2024 HIB Vaccines Aged Out No longer eligi ble based on patient's age to complete this topic Hepatitis A Vaccines Aged Out No long er eligible based on patient's age to complete this topic IPV Vaccines Aged Out No longer eligi ble based on patient's age to complete this topic MMR Vaccines Aged Out No longer eligi ble based on patient's age to complete this topic Meningococcal ACWY Vaccine Aged Out N o longer eligible based on patient's age to complete this topic Meningococcal B Vacine Aged Out No lo nger eligible based on patient's age to complete this topic Pneumococcal Vaccine: Pediat rics (0 to 5 Years) and At-Risk Patients (6 to 64 Years) Aged Out No longer eligible b ased on patient's age to complete this topic RSV Immunization Patients Un tod 20 months Aged Out No longer eligible b ased on patient's age to complete this topic Varicella Vaccines Aged Out No longer eligible based on patient's age to complete this topic Care Teams Binder Folder Operator Relationship Specialty Start Date End Date Ubran Barber PA [address] [place] [address] PCP - General 06/03/23
[2024-10-21 14:04] LABS: Free T4 (Free Thyroxine) 1.09 ng/dL (0.71-1.85); Thyroid Stimulating Hormone 0.84 uIU/mL (0.32-4.0)
== END ==
LOC: HO.CARD 11:25
PROVIDERS: PCP Physician Assistant Medical; Visit Provider Nurse Practitioner Psychiatric/Mental Health
DX: Z79.899 Other long term (current) drug therapy (principal)
CPT/HCPCS: 36415; 80053; 80061; 84439; 84443; 85025; 93005

== ENCOUNTER → 2024-10-21 11:34 | Outpatient (BNV) | payer MEDICAID, SELFPAY | PROVIDERS: PCP Physician Assistant Medical; Visit Provider Internal Medicine Cardiovascular Disease | DX: Z13.6 Encounter for screening for cardiovascular disorders (principal) | CPT/HCPCS: 93010 ==